=== PATIENT | female | born 1940 | race Caucasian/White ===

== ENCOUNTER → 2016-11-29 | Outpatient (CLI) | payer MEDICARE, OTHER ==
[~2016-11-29] MED LIST: BIOTIN10000 MC1 PO; EXCEDRIN EXTRA1 EACH PO; FISH OIL 1,2001 EAC4 PO; GLUCOSAMINE CH1 EAC2 PO; HYDROCODON-ACE1 EAC7 PO; MSM1000 M1 PO; PIOGLITAZONE HC30 MG PO
== END | disposition home or self-care (01) ==
LOC: CDC 11:45
DX: Z01.810 Encounter for preprocedural cardiovascular examination (principal)
CPT/HCPCS: 93000

== ENCOUNTER 2016-12-17 05:18 | Inpatient (IN) | payer OTHER ==
[~2016-12-17] VITALS: Ht 162.6 cm; Wt 78.0 kg
[2016-12-17] VITALS (18 sets, daily range): BP systolic 138–208; BP diastolic 49–77
[~2016-12-17 05:18] MED LIST changes: +ACTOS30 MG PO; +CALTRATE PLUS1 EACH PO
[2016-12-17 06:05] LABS: POINT-OF-CARE METER ID UU14174212
[2016-12-17 09:40] LABS: POINT-OF-CARE METER ID UU13113675
[2016-12-17 11:50] LABS: POINT-OF-CARE METER ID UU13113803
[2016-12-17 12:39] LABS: METH RESISTANT S AUREUS PCR NEGATIVE (NEGATIVE)
[2016-12-17 12:43] LABS: PROBE CHECK PASS; SPECIMEN PROCESSING CONTROL PASS
[2016-12-17 17:04] LABS: POINT-OF-CARE METER ID UU13113803
[2016-12-17] MEDS ORDERED: HYDROCODON-ACE1 EAC7 PO (19:21)
[2016-12-18] VITALS (7 sets, daily range): BP systolic 0–186; BP diastolic 0–71
[2016-12-18 08:34] LABS: POINT-OF-CARE METER ID UU14162636
== END 2016-12-18 13:35 | disposition home or self-care (01) | DRG 39 ==
LOC: 2SOUTH 05:18 → 4WEST 05:18 → 2SOUTH 08:46 → 4WEST 10:30 → 2SOUTH 14:20 → 4WEST 12-18 13:35
PROVIDERS: Surgery
DX: I65.21 Occlusion and stenosis of right carotid artery (principal); I10 Essential (primary) hypertension
CPT/HCPCS: 82948; 87641; 93005; 94799; C1768; J0131; J0360; J0690; J1644; J1650; J1815; J2250; J2405; J2720; J2795; J3010; J7120